=== PATIENT | male | born 1930 | race Caucasian/White ===

== ENCOUNTER → 2016-12-25 | Outpatient (CLI) | payer MEDICARE, OTHER | LOC: GMAJ 11:07 | PROVIDERS: ATTEND Family Medicine | DX: I10 Essential (primary) hypertension (principal); Z12.5 Encounter for screening for malignant neoplasm of prostate | CPT/HCPCS: 84443; G0103 ==

== ENCOUNTER → 2017-01-03 | Outpatient (CLI) | payer MEDICARE, OTHER ==
--- NOTE | 2017-01-03 13:29 | CT ---
EXAM DESCRIPTION: Chest CT. CLINICAL HISTORY: Chronic cough COMPARISON: December 2013 TECHNIQUE: A volumetric CT with IV contrast was acquired and displayed in multiplanar reconstructions. FINDINGS: There is no axillary or supraclavicular lymphadenopathy. Four vessel arch. 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 Heart size is normal. No pericardial disease. No lymphadenopathy. Trachea is midline and unremarkable. No acute upper abdominal findings. Moderate emphysema noted. Prior granulomatous disease. Minimal scarring seen within the left lung base. The ground-glass opacities and interlobular septal thickening has resolved within the right lung base. No pleural effusions noted. IMPRESSION: Today's exam demonstrates moderate emphysema. No new findings to account for patient's cough. No evidence of mass or suspicious pulmonary nodule. There remains minimal bronchiectasis seen within the left lung base. This has improved slightly when compared to prior. Electronically signed by: Sravan Ag MD 01/03/2017 13:26
== END | disposition home or self-care (01) ==
LOC: CT 10:02
PROVIDERS: ATTEND Family Medicine
DX: R05 Cough (principal)

== ENCOUNTER → 2018-04-08 | Outpatient (CLI) | payer OTHER | LOC: GMAJ 14:59 | PROVIDERS: ATTEND Family Medicine | DX: I10 Essential (primary) hypertension (principal); Z12.5 Encounter for screening for malignant neoplasm of prostate | CPT/HCPCS: 84443; G0103 ==

== ENCOUNTER → 2018-04-22 | Outpatient (CLI) | payer OTHER | LOC: GMAJ 16:39 | PROVIDERS: ATTEND Family Medicine | DX: D64.9 Anemia, unspecified (principal) ==